=== PATIENT | female | born 1985 | race Caucasian/White ===

== ENCOUNTER → 2016-07-11 | Outpatient (REF) | LOC: WSOH 08:00 | DX: Z01.89 Encounter for other specified special examinations (principal) ==

== ENCOUNTER → 2023-03-05 | Outpatient (CLI) | payer BC ==
[~2023-03-05] MED LIST: CONCEPT DHA1 CAP PO; IBU600 MG PO; PERCOCET 325 MG1 TA2 PO
== END ==
LOC: CANSCHCLI → MC.RAD 07:58
DX: Z12.31 Encounter for screening mammogram for malignant neoplasm of breast (principal)